=== PATIENT | male | born 1960 | race Caucasian/White ===

== ENCOUNTER 2020-02-08 06:31 | Emergency (ER) | payer OTHER ==
[~2020-02-08] VITALS: Ht 177.8 cm; Wt 87.5 kg
[2020-02-08 06:41] VITALS: BP 138/95
[2020-02-08] MEDS ORDERED: ALLOPURINOL 10100 M3 PO (06:46)
[2020-02-08] MEDS ORDERED: LISINOPRIL2.5 MG PO (06:47)
[2020-02-08] MEDS ORDERED: LIPITOR40 MG PO (06:47)
[2020-02-08] MEDS ORDERED: INDOMETHACIN 5050 M1 (06:48)
[2020-02-08] MEDS ORDERED: VITAMIN D350 MCG PO (06:49)
[2020-02-08] MEDS ORDERED: KEFLEX500 M1 PO (07:31)
[2020-02-08] MEDS ORDERED: NORCO 5-325 TA1 EAC2 PO (07:31)
== END 2020-02-08 07:52 | disposition home or self-care (01) ==
LOC: M.ERS 06:31
DX: S61.001A Unspecified open wound of right thumb without damage to nail, initial encounter (principal); M10.9 Gout, unspecified; E78.5 Hyperlipidemia, unspecified; I10 Essential (primary) hypertension; Z79.899 Other long term (current) drug therapy; W20.8XXA Other cause of strike by thrown, projected or falling object, initial encounter; Y93.89 Activity, other specified; Y92.89 Other specified places as the place of occurrence of the external cause; Y99.8 Other external cause status